=== PATIENT | female | born 1985 | race Caucasian/White ===

== ENCOUNTER 2020-02-02 00:57 | Observation (INO) | payer BC ==
[2020-02-02] MEDS ORDERED: Water For Irrigation,Sterile 1,000 ML Container IRR PRN (01:10)
[2020-02-02] MEDS ORDERED: Methylergonovine 0.2 MG/1 ML Amp IM PRN (01:10)
[2020-02-02] MEDS ORDERED: Misoprostol 200 MCG Tab PO PRN (01:10)
[2020-02-02] MEDS ORDERED: Sodium Chloride 0.9% 10 ML Syringe FLUSH PRN (01:10)
[2020-02-02] MEDS ORDERED: Nalbuphine 10 MG/1 ML Vial IVPUSH PRN (01:10)
[2020-02-02] MEDS ORDERED: Carboprost Tromethamine 250 MCG/1 ML Amp IM PRN (01:10)
[2020-02-02] MEDS ORDERED: Sodium Chloride 0.9% 10 ML SDV IV PRN (01:10)
[2020-02-02] MEDS ORDERED: Butorphanol 1 MG/ML SDV IVPUSH PRN (01:10)
[2020-02-02] MEDS ORDERED: Lidocaine 1% 50 ML MDV INJECT PRN (01:10)
[2020-02-02] MEDS ORDERED: Tranexamic Acid 1,000 MG in Sodium Chloride 0.9% 100 ML IV PRN (01:10)
[2020-02-02] MEDS ORDERED: Sodium Chloride 0.9% 2.5 ML Syringe FLUSH PRN (01:10)
[2020-02-02] MEDS ORDERED: Terbutaline 1 MG/ML SDV SUBCUT PRN (01:15)
[2020-02-02] MEDS ORDERED: Misoprostol 25 MCG (1/4 of 100 MCG) Tab VAG PRN ×2 (01:15)
[2020-02-02] MEDS ORDERED: Oxytocin/0.9 % Sodium Chloride 30 UNIT/500 ML BAG IV SCH ×2 (01:15)
[2020-02-02] MEDS ORDERED: Ampicillin 2 GM in Sodium Chloride 0.9% 100 ML IV ONE (01:32)
[2020-02-02] MEDS: Lactated Ringers 1,000 ML IV SCH ×3 (01:55→10:26)
[2020-02-02] MEDS ORDERED: Ampicillin 1 GM in Sodium Chloride 0.9% 50 ML IV SCH ×2 (06:30→10:30)
[2020-02-02] MEDS ORDERED: fentaNYL 100 MCG/2 ML SDV ONE (10:38)
[2020-02-02] MEDS ORDERED: Ropivacaine HCl/PF 100 ML ONE (10:38)
--- NOTE | 2020-02-02 11:02 | PCM.PREANE ---
Preanesthetic Assessment - Anesthesia/Transfusion/Family Hx Anesthesia History: Prior Anesthesia Without Reaction Family History of Anesthesia Reaction: No Transfusion History: No Prior Transfusion(s) - Physical Assessment NPO Status Date: 02/02/20 NPO Status Time: 00:05 Height: 1.73 m Weight: 107.501 kg ASA Class: 2 - Lab Values: Laboratory Last Values WBC 11.05 K/uL (4.0-11.0) H 02/02/20 01:30 RBC 4.00 M/uL (4.30-5.90) L 02/02/20 01:30 Hgb 11.8 g/dL (12.0-16.0) L 02/02/20 01:30 Hct 35.1 % (36.0-46.0) L 02/02/20 01:30 MCV 87.8 fL (80.0-98.0) 02/02/20 01:30 MCH 29.5 pg (27.0-32.0) 02/02/20 01:30 MCHC 33.6 g/dL (31.0-37.0) 02/02/20 01:30 RDW Std Deviation 39.7 fl (28.0-62.0) 02/02/20 01:30 RDW Coeff of Lynnette 13 % (11.0-15.0) 02/02/20 01:30 Plt Count 218 K/uL (150-400) 02/02/20 01:30 MPV 10.30 fL (7.40-12.00) 02/02/20 01:30 Nucleated RBC % 0.0 /100WBC 02/02/20 01:30 Nucleated RBCs # 0 K/uL 02/02/20 01:30 Blood Type O POSITIVE 02/02/20 01:30 Antibody Screen NEGATIVE 02/02/20 01:30 - Allergies Allergies/Adverse Reactions: Allergies Allergy/AdvReac Type Severity Reaction Status Date / Time No Known Allergies Allergy Verified 02/02/20 01:08 - Acknowledgements Anesthesia Type Planned: Epidural Pt an Appropriate Candidate for the Planned Anesthesia: Yes Alternatives and Risks of Anesthesia Discussed w Pt/Guardian: Yes Pt/Guardian Understands and Agrees with Anesthesia Plan: Yes PreAnesthesia Questionnaire HEENT History: Reports: Impaired Vision Cardiovascular History: Reports: None Respiratory History: Reports: None Gastrointestinal History: Reports: None Genitourinary History: Reports: None ROAD INSPECTOR History: Reports: Musculoskeletal History: Reports: Fracture Neurological History: Reports: None Psychiatric History: Reports: None Endocrine/Metabolic History: Reports: None Hematologic History: Reports: None Immunologic History: Reports: None Oncologic (Cancer) History: Reports: None Dermatologic History: Reports: None - Infectious Disease History Infectious Disease History: Reports: Chicken Pox - Past Surgical History HEENT Surgical History: Reports: Other (See Below) Other HEENT Surgeries/Procedures: wisdom teeth extractions GI Surgical History: Reports: None Female Surgical History: Reports: None Musculoskeletal Surgical History: Reports: None - SUBSTANCE USE Tobacco Use Status *Q: Never Tobacco User Second Hand Smoke Exposure: No Recreational Drug Use History: No - HOME MEDS Home Medications: Home Meds Pnv 102/Iron/Folate/Dha [Vitafol Fe Plus Softgel] 1 tab PO DAILY 02/02/20 [History] - CURRENT (IN HOUSE) MEDS Current Meds: Current Medications Butorphanol Tartrate (Stadol) 1 mg IVPUSH Q1H PRN PRN Reason: Pain Carboprost Tromethamine (Hemabate Ds) 250 mcg IM ASDIRECTED PRN PRN Reason: Post Hemorrhage Oxytocin/Sodium Chloride (Oxytocin 30 Unit/500 Ml-Ns) 30 unit in 500 mls @ 500 mls/hr IV TITRATE WIN Tranexamic Acid 1,000 mg/ (Sodium Chloride) 110 mls @ 660 mls/hr IV ONETIME PRN PRN Reason: Bleeding Lactated Ringer's (Ringers, Lactated) 1,000 mls @ 150 mls/hr IV ASDIRECTED WIN Last Admin: 02/02/20 10:26 Dose: 150 mls/hr Documented by: Oxytocin/Sodium Chloride (Oxytocin 30 Unit/500 Ml-Ns) 30 unit in 500 mls @ 2 mls/hr IV TITRATE WIN; Protocol Last Titration: 02/02/20 10:28 Dose: 8 munits/min, 8 mls/hr Documented by: Ampicillin Sodium 1 gm/ Sodium (Chloride) 50 mls @ 100 mls/hr IV Q4H WIN Lidocaine HCl (Xylocaine 1%) 50 ml INJECT ONETIME PRN PRN Reason: Laceration repair Methylergonovine Maleate (Methergine) 0.2 mg IM ASDIRECTED PRN PRN Reason: Post Hemorrhage Misoprostol (Cytotec) 200 mcg PO ONETIME PRN PRN Reason: Post Hemorrhage Misoprostol (Cytotec) 25 mcg VAG ONETIME PRN PRN Reason: Cervical Ripening Last Admin: 02/02/20 02:16 Dose: 25 mcg Documented by: Misoprostol (Cytotec) 25 mcg VAG Q4H PRN PRN Reason: Cervical Ripening Nalbuphine HCl (Nubain) 10 mg IVPUSH Q1H PRN PRN Reason: Pain (severe 7-10) Sodium Chloride (Saline Flush) 10 ml FLUSH ASDIRECTED PRN PRN Reason: Keep Vein Open Sodium Chloride (Saline Flush) 2.5 ml FLUSH ASDIRECTED PRN PRN Reason: Keep Vein Open Sodium Chloride (Normal Saline) 10 ml IV ASDIRECTED PRN PRN Reason: IV Use Sterile Water (Sterile Water For Irrigation) 1,000 ml IRR ASDIRECTED PRN PRN Reason: delivery Terbutaline Sulfate (Brethine) 0.25 mg SUBCUT ASDIRECTED PRN PRN Reason: Tacysystole Discontinued Medications Fentanyl (Sublimaze) Confirm Administered Dose 100 mcg .ROUTE .STK-MED ONE Stop: 02/02/20 10:39 Ampicillin Sodium 2 gm/ Sodium (Chloride) 100 mls @ 200 mls/hr IV ONETIME ONE Stop: 02/02/20 02:01 Last Admin: 02/02/20 01:55 Dose: 200 mls/hr Documented by: Ampicillin Sodium 1 gm/ Sodium (Chloride) 50 mls @ 100 mls/hr IV Q4H WIN Last Admin: 02/02/20 06:30 Dose: 100 mls/hr Documented by: Ropivacaine (Naropin 0.2%) Confirm Administered Dose 100 mls @ as directed .ROUTE .STK-MED ONE Stop: 02/02/20 10:39
--- NOTE | 2020-02-02 11:05 | PCM.PRNOTE ---
- Free Text/Narrative Note: Anes NOte Patietn requests epidural for L&D. Sitting position, level L3-L4 midline approach. Sterile technique. Chloraprep scrub to lumbar area. Sterile fenstrated drape applied. Epidural space easily achieved single attempt with ease using AP technique. AP at 4 cm. Cath threaded 5 cm with ease. Cath secured with sterile clear adhesive dressing. 1050 Test 3 cc 1.5% lido with epi negative. 1053 Load 10 cc 0.2% ropivicaine with 1 mcg cc fentnayl in slow divided doses. 1058 Pump started with 90 cc same solution. Rate is 8 cc hr with 6 cc q 20 min prn bolus. Leeann well. Time with patient [id number] Otis Uribe TRIAGE REGISTER NURSE
[2020-02-02] MEDS ORDERED: Bisacodyl 10 MG Supp RECTAL PRN (14:52)
[2020-02-02] MEDS ORDERED: Lanolin 100% Cream 7 GM Tube TOP PRN (14:52)
[2020-02-02] MEDS ORDERED: Witch Hazel Medicated Pads 40/Jar TOP PRN (14:52)
[2020-02-02] MEDS ORDERED: Acetaminophen 500 MG Tab PO PRN ×2 (14:52)
[2020-02-02] MEDS ORDERED: Ibuprofen 400 MG Tab PO PRN (14:52)
[2020-02-02] MEDS ORDERED: Docusate Sodium 100 MG Cap PO PRN (14:52)
[2020-02-02] MEDS ORDERED: Benzocaine/Menthol 20%-0.5% Spray 78 GM Cannister TOP PRN (14:52)
[2020-02-02] MEDS ORDERED: oxyCODONE 5 MG Tab PO PRN (14:52)
--- NOTE | 2020-02-02 15:00 | PCM.OPNOTE ---
- General Post-Op/Procedure Note Date of Surgery/Procedure: 02/02/20 Operative Procedure(s): /1st MLL repaired Findings: Viable female AGPARs 9, 9 weight 8 lb 15 oz. Spontaneous delivery intact placenta with 3V cord Pre Op Diagnosis: 39/2 week IUP. Elective IOL. GBBS + Post-Op Diagnosis: Same Anesthesia Technique: Epidural Primary Surgeon: Tatum Guillory EBL in mLs: 300 Complications: none known Condition: Good Free Text/Narrative:: Dictation [id number]
--- NOTE | 2020-02-02 15:58 | OR ---
SURGEON: Tatum Guillory M.D. DATE OF PROCEDURE: 02/02/2020 PREOPERATIVE DIAGNOSES: 1. 39 and 2 week intrauterine . 2. Elective induction of labor. 3. Group B beta strep positive. POSTOPERATIVE DIAGNOSES: 1. 39 and 2 week intrauterine . 2. Elective induction of labor. 3. Group B beta strep positive. PROCEDURE: Spontaneous vaginal delivery, first-degree midline laceration repaired. ANESTHESIA: Epidural. ESTIMATED BLOOD LOSS: 300 mL. COMPLICATIONS: None known. FINDINGS: Viable female, score of 9 at 1 minute and 9 at 5 minutes. Weight 8 pounds 15 ounces. Spontaneous delivery, intact placenta, 3-vessel cord. DISPOSITION: nursery, mom in LDRP. INDICATIONS: Alba is a 34-year-old, G2, P1, at 39 and 2 weeks' gestation who presents for scheduled elective induction of labor. 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 She was group B beta strep positive, so underwent ampicillin prophylaxis. heart tones were category 1 with some episodes of minimal variability. Shortly before 9 a.m. on the morning of 02/02/2020, the patient had already received 2 doses of antibiotics. Therefore, underwent amniotomy. She was found to be 3 cm, 60% effaced, -2 station. Clear fluid was returned. The patient became increasingly uncomfortable, underwent regional anesthesia shortly before noon. At that time, she was found to be 5 cm, 80% effaced, -2. The patient continued to progress and shortly after 2 p.m. was found to be complete, 100% effaced, +3 station. I was called for delivery. Upon my arrival, the patient was placed in modified dorsal lithotomy position, was prepped and draped in usual aseptic manner. Began pushing efforts and with the next usual contraction, was able to deliver 's head atraumatically spontaneously, followed by anterior shoulder, posterior shoulder, and remainder of body without difficulty. The 's oropharynx and nares were bulb suctioned. Cord was clamped x2 and cut after delay. Cord arterial, cord venous, cord blood sampling was obtained. Light pressure was applied while the placenta was delivered spontaneously intact. Vigorous fundal uterine massage was then applied while 30 units of Pitocin was delivered in 500 mL of IV fluid. Upon inspection of cervix, vaginal sidewall, and perineum, there was found to be a first-degree midline laceration repaired using 3-0 Vicryl in the usual fashion. Hemostasis evident. The patient tolerated the procedure well. She will remain in LDRP in stable condition. Sponge count, instrument count, and needle count were correct. Hemostasis evident. MIRIAN / JENNIFER /[id number]
[2020-02-02] MEDS: Ibuprofen 800 MG Tab PO PRN (20:13)
[2020-02-03] MEDS: Ibuprofen 800 MG Tab PO PRN ×2 (03:54→11:57)
--- NOTE | 2020-02-03 08:13 | PCM.PNPP ---
- General Info Date of Service: 02/03/20 Functional Status: Reports: Pain Controlled, Tolerating Diet, Ambulating, Urinating - Review of Systems General: Denies: Fever, Weakness Pulmonary: Denies: Shortness of Breath Cardiovascular: Denies: Chest Pain, Palpitations, Lightheadedness Gastrointestinal: Denies: Abdominal Pain, Nausea, Vomiting Genitourinary: Denies: Flank Pain Musculoskeletal: Reports: No Symptoms Skin: Reports: No Symptoms Neurological: Reports: No Symptoms Psychiatric: Reports: No Symptoms - General Info Date of Service: 02/03/20 - Patient Data Vital Signs - Most Recent: Last Vital Signs Temp 36.2 C 02/03/20 04:38 Pulse 65 02/03/20 04:38 Resp 17 02/03/20 04:38 BP 107/67 02/03/20 04:38 Pulse Ox 96 02/03/20 04:38 Weight - Most Recent: 107.501 kg Lab Results - Last 24 Hours: Laboratory Results - last 24 hr 02/02/20 02/03/20 Range/Units 14:25 06:28 Hgb 11.1 L (12.0-16.0) g/dL Hct 33.3 L (36.0-46.0) % Cord ABG pH 7.205 (7.18-7.38) Cord ABG Base Excess -5 (-10--2) Cord VBG pH 7.300 (7.25-7.45) Cord VBG Base Excess -4 (-10--2) Med Orders - Current: Current Medications Acetaminophen (Tylenol Extra Strength) 500 mg PO Q4H PRN PRN Reason: Pain Acetaminophen (Tylenol Extra Strength) 1,000 mg PO Q4H PRN PRN Reason: Pain Benzocaine/Menthol (Dermoplast Pain Relief 20%-0.5% [place]) 78 gm TOP ASDIRECTED PRN PRN Reason: Perineal Comfort Measure Bisacodyl (Dulcolax) 10 mg RECTAL ONETIME PRN PRN Reason: Constipation Carboprost Tromethamine (Hemabate Ds) 250 mcg IM ASDIRECTED PRN PRN Reason: Post Hemorrhage Docusate Sodium (Colace) 100 mg PO BID PRN PRN Reason: Constipation Emollient Ointment (Lansinoh Hpa) 0 gm TOP ASDIRECTED PRN PRN Reason: Sore Nipples Oxytocin/Sodium Chloride (Oxytocin 30 Unit/500 Ml-Ns) 30 unit in 500 mls @ 500 mls/hr IV TITRATE WIN Tranexamic Acid 1,000 mg/ (Sodium Chloride) 110 mls @ 660 mls/hr IV ONETIME PRN PRN Reason: Bleeding Lactated Ringer's (Ringers, Lactated) 1,000 mls @ 150 mls/hr IV ASDIRECTED WIN Last Admin: 02/02/20 10:26 Dose: 150 mls/hr Documented by: Oxytocin/Sodium Chloride (Oxytocin 30 Unit/500 Ml-Ns) 30 unit in 500 mls @ 2 mls/hr IV TITRATE WIN; Protocol Last Titration: 02/02/20 13:05 Dose: 16 munits/min, 16 mls/hr Documented by: Ibuprofen (Motrin) 400 mg PO Q4H PRN PRN Reason: Pain Ibuprofen (Motrin) 800 mg PO Q6H PRN PRN Reason: Pain Last Admin: 02/03/20 03:54 Dose: 800 mg Documented by: Lidocaine HCl (Xylocaine 1%) 50 ml INJECT ONETIME PRN PRN Reason: Laceration repair Methylergonovine Maleate (Methergine) 0.2 mg IM ASDIRECTED PRN PRN Reason: Post Hemorrhage Misoprostol (Cytotec) 200 mcg PO ONETIME PRN PRN Reason: Post Hemorrhage Nalbuphine HCl (Nubain) 10 mg IVPUSH Q1H PRN PRN Reason: Pain (severe 7-10) Oxycodone HCl (Oxycodone) 5 mg PO Q2H PRN PRN Reason: Pain Sodium Chloride (Saline Flush) 10 ml FLUSH ASDIRECTED PRN PRN Reason: Keep Vein Open Sodium Chloride (Saline Flush) 2.5 ml FLUSH ASDIRECTED PRN PRN Reason: Keep Vein Open Sodium Chloride (Normal Saline) 10 ml IV ASDIRECTED PRN PRN Reason: IV Use Sterile Water (Sterile Water For Irrigation) 1,000 ml IRR ASDIRECTED PRN PRN Reason: delivery Witch Lety (Tucks) 1 pad TOP ASDIRECTED PRN PRN Reason: comfort care Discontinued Medications Butorphanol Tartrate (Stadol) 1 mg IVPUSH Q1H PRN PRN Reason: Pain Fentanyl (Sublimaze) Confirm Administered Dose 100 mcg .ROUTE .STK-MED ONE Stop: 02/02/20 10:39 Last Admin: 02/03/20 05:28 Dose: Not Given Documented by: Ampicillin Sodium 2 gm/ Sodium (Chloride) 100 mls @ 200 mls/hr IV ONETIME ONE Stop: 02/02/20 02:01 Last Admin: 02/02/20 01:55 Dose: 200 mls/hr Documented by: Ampicillin Sodium 1 gm/ Sodium (Chloride) 50 mls @ 100 mls/hr IV Q4H [facility] Last Admin: 02/02/20 06:30 Dose: 100 mls/hr Documented by: Ampicillin Sodium 1 gm/ Sodium (Chloride) 50 mls @ 100 mls/hr IV Q4H [facility] Last Admin: 02/02/20 11:18 Dose: 100 mls/hr Documented by: Ropivacaine (Naropin 0.2%) Confirm Administered Dose 100 mls @ as directed .ROUTE .STK-MED ONE Stop: 02/02/20 10:39 Last Admin: 02/03/20 05:26 Dose: Not Given Documented by: Misoprostol (Cytotec) 25 mcg VAG ONETIME PRN PRN Reason: Cervical Ripening Last Admin: 02/02/20 02:16 Dose: 25 mcg Documented by: Misoprostol (Cytotec) 25 mcg VAG Q4H PRN PRN Reason: Cervical Ripening Terbutaline Sulfate (Brethine) 0.25 mg SUBCUT ASDIRECTED PRN PRN Reason: Tacysystole - Infant Interaction Support Person: - Recovery Exam Fundal Tone: Firm Fundal Level: 1 Fingerbreadths Below Umbilicus Fundal Placement: Midline Lochia Amount: Scant Lochia Color: Rubra/Red Perineum Description: Edematous Episiotomy/Laceration: Approximated Bladder Status: Nonpalpable, Voiding Urinary Elimination: Voided - Exam General: Alert, Oriented Lungs: Normal Respiratory Effort Cardiovascular: Regular Rate, Regular Rhythm GI/Abdominal Exam: Normal Bowel Sounds, Soft Extremities: Pedal Edema (pedrito). No: Tha's Sign Skin: Warm, Dry, Intact Neurological: No New Focal Deficit Psy/Mental Status: Alert, Normal Affect, Normal Mood - Problem List & Annotations (1) Vaginal delivery SNOMED Code(s): 380838005 Code(s): O80 - ENCOUNTER FOR FULL-TERM UNCOMPLICATED DELIVERY Status: Acute Current Visit: Yes - Problem List Review Problem List Initiated/Reviewed/Updated: Yes - My Orders Last 24 Hours: My Active Orders 02/02/20 14:52 Notify Provider Vital Signs [RC] ASDIRECTED Acetaminophen [Tylenol Extra Strength] 1,000 mg PO Q4H PRN Acetaminophen [Tylenol Extra Strength] 500 mg PO Q4H PRN Benzocaine/Menthol [Dermoplast Pain Relief 20%-0.5% [place]] 78 gm TOP ASDIRECTED PRN Docusate Sodium [Colace] 100 mg PO BID PRN Ibuprofen [Motrin] 400 mg PO Q4H PRN Ibuprofen [Motrin] 800 mg PO Q6H PRN Lanolin [Lansinoh HPA] See Dose Instructions TOP ASDIRECTED PRN bisacodyL [Dulcolax] 10 mg RECTAL ONETIME PRN oxyCODONE 5 mg PO Q2H PRN witch Lety [Tucks] 1 pad TOP ASDIRECTED PRN 02/02/20 14:53 Patient Status [ADT] Routine May Shower [RC] ASDIRECTED Up ad Mimi [RC] ASDIRECTED Assess Lochia [WOMSER] Per Unit Routine Assess Uterine Involution [WOMSER] Per Unit Routine Ice Therapy [OM.PC] Per Unit Routine Perineal Care [OM.PC] Per Unit Routine Peripheral IV Discontinue [OM.PC] Routine Sitz Bath [OM.PC] Per Unit Routine 02/02/20 Dinner Regular Diet [DIET] 02/03/20 08:10 Ready for Discharge [RC] PER UNIT ROUTINE - Assessment Assessment:: PPD 1 status post /1st MLL repaired - Plan Plan:: Patient doing well overall. She would like to go home today. Discharge instructions reviewed. Discharge to home today. Follow up at [facility] 4 weeks.
--- NOTE | 2020-02-03 10:10 | PCM48HPAN ---
Post Anesthesia Note - EVALUATION WITHIN 48HRS OF ANESTHETIC Vital Signs in Normal Range: Yes Patient Participated in Evaluation: Yes Respiratory Function Stable: Yes Airway Patent: Yes Cardiovascular Function Stable: Yes Hydration Status Stable: Yes (Taking PO well) Pain Control Satisfactory: Yes (Reports adequate pain control, 2 to 3/10) Nausea and Vomiting Control Satisfactory: Yes (Denies nausea) Mental Status Recovered: Yes Vital Signs: Last Vital Signs Temp 36.2 C 02/03/20 04:38 Pulse 65 02/03/20 04:38 Resp 17 02/03/20 04:38 BP 107/67 02/03/20 04:38 Pulse Ox 96 02/03/20 04:38 - COMMENTS/OBSERVATIONS Free Text/Narrative:: Ambulating without difficulty, reports full return of strength and sensation to BLE.
== END 2020-02-03 16:30 | disposition home or self-care (01) ==
LOC: MW.OBCHECK 00:57 → MW.OB 00:58 → MW.OBCHECK 01:10 → MW.OB 18:30
PROVIDERS: ADMIT Obstetrics & Gynecology; ATTEND Obstetrics & Gynecology
DX: O99.820 Streptococcus B carrier state complicating pregnancy (principal); Z3A.39 39 weeks gestation of pregnancy; Z37.0 Single live birth
CPT/HCPCS: 36415; 51702; 59025; 59409; 82803; 85014; 85018; 85027; 86592; 86850; 86900; 86901; A9270; J0290; J2590; J7050; J7120; 01967